=== PATIENT | female | born 1950 | race Caucasian/White ===

== ENCOUNTER 2021-12-26 11:04 | Emergency (ER) | payer MEDICARE ==
[2021-12-26] MEDS: Ketorolac 30 MG/ML SDV IM ONE (12:14)
[2021-12-26] MEDS: Ketorolac 30 MG/ML SDV ONE (12:23)
[2021-12-26] MEDS: Diphtheria/Tetanus Toxoids,Adult (Td) 0.5 ML SDV IM ONE (12:39)
[2021-12-26] MEDS ORDERED: traMADol 50 MG Tab ONE (13:30)
[2021-12-26] MEDS: Lidocaine 1% with EPINEPHrine 1:100,000 50 ML MDV INFILT ONE (16:20)
== END 2021-12-26 13:38 | disposition home or self-care (01) ==
LOC: LB.ED 11:04
DX: S01.81XA Laceration without foreign body of other part of head, initial encounter (principal); Z23 Encounter for immunization; W22.8XXA Striking against or struck by other objects, initial encounter
CPT/HCPCS: 12013; 73030-RT; 90471; 90714; 96372; 99282; 99283-25; A9270-GY; J1885

== ENCOUNTER 2025-05-30 13:41 | Emergency (ER) | payer MEDICARE ==
[2025-05-30] MEDS ORDERED: Sodium Chloride 0.9% 10 ML Syringe FLUSH PRN (13:45)
[2025-05-30 14:39] LABS: A/G RATIO 0.9 (0.8-2.0); ALANINE AMINOTRANSFERASE,ALT 57.0 U/L (12-78); ASPARTATE AMNIOTRANSFERASE,AST 36.0 U/L (15-37); BILIRUBIN TOTAL 0.2 mg/dL (0.0-1.0); BLOOD UREA NITROGEN,BUN 14.0 mg/dL (8-26); CARBON DIOXIDE,CO2 22.0 mmol/L (21.0-32.0); CHLORIDE,CL 102.0 mmol/L (98-107); CREATININE 0.64 mg/dL (0.55-1.02); EST CRCL DRUG DOSING (CG) 72.19 mL/min; ESTIMATED GFR 93.0 mL/min (>60); GLUCOSE RANDOM 153.0 mg/dL (74-100); POTASSIUM,K 3.7 mmol/L (3.5-5.1); PROTEIN TOTAL,TP 7.1 g/dL (6.4-8.2); SODIUM,NA 139.0 mmol/L (136-145)
[2025-05-30 17:26] LABS: MEAN PLATELET VOLUME 10.3 fL (6.0-10.0); PLATELET COUNT,PLT 345.0 K/uL (150-500); RED BLOOD CELL COUNT 3.02 M/uL (3.80-5.80); RED CELL DISTRIBUTION WIDTH 12.3 % (11.0-16.0); WHITE BLOOD CELL COUNT,WBC 5.4 K/uL (4.0-11.0)
[2025-05-30 17:36] LABS: APPEARANCE,URINE CLEAR (CLEAR); GLUCOSE,URINE 100 mg/dL (NEGATIVE); OCCULT BLOOD,URINE NEGATIVE (NEGATIVE)
[2025-05-30] MEDS: Sodium Chloride 0.9% 50 ML SDV FLUSH ONE (17:44)
[2025-05-30] MEDS: Iopamidol 755 Mg/ML 100 ML Bottle IV SCH (17:44)
== END 2025-05-30 19:52 | disposition home or self-care (01) ==
LOC: LB.ED 13:41
DX: S09.90XA Unspecified injury of head, initial encounter (principal); I10 Essential (primary) hypertension; W01.198A Fall on same level from slipping, tripping and stumbling with subsequent striking against other object, initial encounter
CPT/HCPCS: 36415; 70450; 70496; 70498; 73521; 80053; 81003; 83735; 85027; 86140; 93005; 99284; A9270; Q9967; 93010; 99283

== ENCOUNTER 2025-06-01 09:12 | Emergency (ER) | payer MEDICARE ==
[2025-06-01 12:12] LABS: BASOPHILS ABSOLUTE AUTO 0.01 K/uL (0.02-0.10); BASOPHILS PERCENT AUTO 0.2 % (0.0-0.5); EOSINOPHILS ABSOLUTE AUTO 0.02 K/uL (0.04-0.40); EOSINOPHILS PERCENT AUTO 0.5 % (1.0-5.0); LYMPHOCYTES ABSOLUTE AUTO 0.66 K/uL (1.50-4.00); LYMPHOCYTES PERCENT AUTO 15.1 % (20.0-40.0); MEAN PLATELET VOLUME 10.2 fL (6.0-10.0); MONOCYTES ABSOLUTE AUTO 0.33 K/uL (0.20-0.80); MONOCYTES PERCENT AUTO 7.6 % (3.0-10.0); NEUTROPHILS ABSOLUTE AUTO 3.34 K/uL (2.00-7.50); NEUTROPHILS PERCENT AUTO 76.6 % (45.0-70.0); PLATELET COUNT,PLT 366 K/uL (150-500); RED BLOOD CELL COUNT 3.05 M/uL (3.80-5.80); RED CELL DISTRIBUTION WIDTH 12.0 % (11.0-16.0); WHITE BLOOD CELL COUNT,WBC 4.4 K/uL (4.0-11.0)
[2025-06-01 12:36] LABS: INR 0.9 (1.0-3.5); PTT,PARTIAL THROMBOPLSTIN TIME 24.1 SECONDS (24.4-33.2)
[2025-06-01 12:38] LABS: A/G RATIO 0.9 (0.8-2.0); ALANINE AMINOTRANSFERASE,ALT 51.0 U/L (12-78); ASPARTATE AMNIOTRANSFERASE,AST 33.0 U/L (15-37); BILIRUBIN TOTAL 0.4 mg/dL (0.0-1.0); BLOOD UREA NITROGEN,BUN 9.0 mg/dL (8-26); CARBON DIOXIDE,CO2 24.8 mmol/L (21.0-32.0); CHLORIDE,CL 104.0 mmol/L (98-107); CREATININE 0.72 mg/dL (0.55-1.02); EST CRCL DRUG DOSING (CG) 64.17 mL/min; ESTIMATED GFR 88.0 mL/min (>60); GLUCOSE RANDOM 213.0 mg/dL (74-100); POTASSIUM,K 3.3 mmol/L (3.5-5.1); PROTEIN TOTAL,TP 6.6 g/dL (6.4-8.2); SODIUM,NA 142.0 mmol/L (136-145)
== END 2025-06-01 15:00 ==
LOC: LB.ED 09:12
DX: I63.9 Cerebral infarction, unspecified (principal); I10 Essential (primary) hypertension; Z87.891 Personal history of nicotine dependence; Z79.899 Other long term (current) drug therapy
CPT/HCPCS: 36415; 80053; 80307; 82947; 85025; 85610; 85730; 99285; A9270-GY

== ENCOUNTER 2025-06-17 10:33 | Inpatient (IN) | payer MEDICARE ==
[2025-06-17] MEDS: Tuberculin, PPD 5 Units/0.1 ML 1 ML MDV IDERM ONE (15:20)
[2025-06-18] MEDS: Cyanocobalamin (Vitamin B12) 1,000 MCG Tab PO SCH (07:52)
[2025-06-18 11:30] LABS: MEAN PLATELET VOLUME 11.5 fL (6.0-10.0); PLATELET COUNT,PLT 306.0 K/uL (150-500); RED BLOOD CELL COUNT 3.42 M/uL (3.80-5.80); RED CELL DISTRIBUTION WIDTH 13.0 % (11.0-16.0); WHITE BLOOD CELL COUNT,WBC 5.6 K/uL (4.0-11.0)
[2025-06-18 11:49] LABS: BLOOD UREA NITROGEN,BUN 13.0 mg/dL (8-26); CARBON DIOXIDE,CO2 25.5 mmol/L (21.0-32.0); CHLORIDE,CL 111.0 mmol/L (98-107); CREATININE 0.72 mg/dL (0.55-1.02); EST CRCL DRUG DOSING (CG) 64.17 mL/min; ESTIMATED GFR 88.0 mL/min (>60); GLUCOSE RANDOM 220.0 mg/dL (74-100); POTASSIUM,K 3.7 mmol/L (3.5-5.1); SODIUM,NA 146.0 mmol/L (136-145)
[2025-06-19 09:55] LABS: APPEARANCE,URINE CLEAR (CLEAR); GLUCOSE,URINE 100 mg/dL (NEGATIVE); OCCULT BLOOD,URINE NEGATIVE (NEGATIVE)
[2025-06-25] MEDS ORDERED: Magnesium Hydroxide 400 MG/5 ML Susp 30 ML Cup PO PRN (17:06)
[2025-06-26 15:10] LABS: FOLATE,SERUM >22.3 ng/mL (>=5.9)
[2025-06-27 02:14] LABS: IRON BINDING CAPACITY TOTAL 354 ug/dL (240-450); IRON,SERUM OR PLASMA 24 ug/dL (28-170); TRANSFERRIN SATURATION 7 %sat (20-50)
[2025-06-28 12:58] LABS: APPEARANCE,URINE CLEAR (CLEAR); GLUCOSE,URINE 100 mg/dL (NEGATIVE); OCCULT BLOOD,URINE NEGATIVE (NEGATIVE)
[2025-06-29] MEDS ORDERED: Sodium Chloride 0.9% 10 ML Syringe FLUSH PRN (13:18)
[2025-07-01] MEDS: Tuberculin, PPD 5 Units/0.1 ML 1 ML MDV IDERM ONE (14:22)
[2025-07-03 13:51] LABS: APPEARANCE,URINE TURBID (CLEAR); GLUCOSE,URINE 500 mg/dL (NEGATIVE); OCCULT BLOOD,URINE NEGATIVE (NEGATIVE)
[2025-07-03 13:55] LABS: SQUAMOUS EPITHELIAL CELLS,UR FEW /HPF; WBC CLUMPS,URINE OCCASIONAL /HPF
[2025-07-07 07:51] LABS: MEAN PLATELET VOLUME 11.9 fL (6.0-10.0); PLATELET COUNT,PLT 286.0 K/uL (150-500); RED BLOOD CELL COUNT 3.77 M/uL (3.80-5.80); RED CELL DISTRIBUTION WIDTH 13.8 % (11.0-16.0); WHITE BLOOD CELL COUNT,WBC 4.6 K/uL (4.0-11.0)
[2025-07-07 08:09] LABS: BLOOD UREA NITROGEN,BUN 13.0 mg/dL (8-26); CARBON DIOXIDE,CO2 28.2 mmol/L (21.0-32.0); CHLORIDE,CL 109.0 mmol/L (98-107); CREATININE 0.67 mg/dL (0.55-1.02); EST CRCL DRUG DOSING (CG) 68.96 mL/min; ESTIMATED GFR 92.0 mL/min (>60); GLUCOSE RANDOM 183.0 mg/dL (74-100); POTASSIUM,K 4.8 mmol/L (3.5-5.1); SODIUM,NA 145.0 mmol/L (136-145)
[2025-07-12 07:08] LABS: APPEARANCE,URINE SLIGHTLY CLOUDY (CLEAR); GLUCOSE,URINE >=1000 mg/dL (NEGATIVE); OCCULT BLOOD,URINE NEGATIVE (NEGATIVE)
[2025-07-12] MEDS: metFORMIN 500 MG Tab.ER PO SCH (10:43)
[2025-07-26] MEDS: metFORMIN 500 MG Tab.ER PO SCH (16:28)
== END 2025-07-29 13:40 | disposition home or self-care (01) | DRG 948 ==
LOC: LB.MS 14:04 → UNDOADMIN 14:06 → LB.MS 06-23 13:00
PROVIDERS: ADMIT Nurse Practitioner Family; ATTEND Nurse Practitioner Family
DX: R53.81 Other malaise (principal); F01.53 Vascular dementia, unspecified severity, with mood disturbance; I10 Essential (primary) hypertension; E78.00 Pure hypercholesterolemia, unspecified; E11.9 Type 2 diabetes mellitus without complications; R41.0 Disorientation, unspecified; Z51.5 Encounter for palliative care; Z79.82 Long term (current) use of aspirin; Z79.1 Long term (current) use of non-steroidal anti-inflammatories (NSAID); Z79.899 Other long term (current) drug therapy; Z98.84 Bariatric surgery status; Z87.81 Personal history of (healed) traumatic fracture; Z86.16 Personal history of COVID-19; Z90.49 Acquired absence of other specified parts of digestive tract
CPT/HCPCS: 36415; 80048; 81001; 81003; 82607; 82746; 82947; 83036; 83540; 83550; 83735; 85027; 86580; 92507-GN; 92526-GN; 92610-GN; 93005; 96125-GN; 97110-GO; 97110-GP; 97112-GP; 97116-GP; 97129-GN; 97130-GN; 97163-GP; 97166-GO; 97530-GO; 97530-GP; 97535-GO; 99305; 99307; 99308; 99309; 99315; A9270-GY; J1650